=== PATIENT | female | born 1960 | race Caucasian/White ===

== ENCOUNTER → 2024-05-07 09:37 | Outpatient (REF) | payer BC, SELFPAY | LOC: MRI 3T 09:37 | PROVIDERS: ATTENDING PHYSICIAN Internal Medicine | DX: Z91.89 Other specified personal risk factors, not elsewhere classified (principal) | CPT/HCPCS: 77049; A9585 ==

== ENCOUNTER 2024-07-08 23:58 | Emergency (ER) | payer BC, SELFPAY ==
[2024-07-09 00:04] VITALS: BP 177/80
[2024-07-09 00:31] LABS: % Basophils 0.2 % (0-2); % Eosinophils 2.9 % (0-6); % Immature Granulocytes 1.3 % (0-0.5); % Lymphocytes 38.2 % (20.5-51.1); % Neutrophils 52.4 % (42.2-75.2); Absolute Eosinophils 0.1 10^3/uL (0-0.7); Absolute Immature Granulocytes 0.1 10^3/uL (0-0.05); Absolute Lymphocytes 1.8 10^3/uL (1.2-3.4); Absolute Monocytes 0.2 10^3/uL (0.1-0.6); Absolute Neutrophils 2.5 10^3/uL (1.4-6.5); Hematocrit 33.4 % (37.0-47.0); Hemoglobin 11.5 g/dL (12.0-16.0); Mean Corp Hgb Conc. 34.4 g/dL (33.0-37.0); Mean Corpuscular Hgb 30.4 pg (27.0-31.0); Mean Corpuscular Volume 88.4 fL (81.0-99.0); Mean Platelet Volume 11.3 fL (7.4-10.4); Nucleated Red Blood Cells % 0 %; Platelet Count 183 10^3/uL (130-400); Red Blood Cell Count 3.78 10^6/uL (4.20-5.40); Red Cell Dist. Width 14.1 % (11.5-14.5); White Blood Cell Count 4.8 10^3/uL (4.8-10.8)
[2024-07-09 00:43] LABS: ALT (SGPT) 18 U/L (0-35); AST (SGOT) 22 U/L (14-36); Albumin 4.4 g/dl (3.5-5.0); Alkaline Phosphatase 65 U/L (38-126); Blood Urea Nitrogen 31 mg/dl (7-17); Carbon Dioxide 34 mmol/L (22-30); Chloride 105 mmol/L (98-107); Glucose 95 mg/dl (70-99); Potassium 3.8 mmol/L (3.5-5.1); Sodium 141 mmol/L (135-145); Total Bilirubin 0.5 mg/dl (0.2-1.3); Total Protein 6.7 g/dl (6.3-8.2); eGFR > 60.00
[2024-07-09 00:46] LABS: Troponin I < 0.012 ng/ml
--- NOTE | 2024-07-09 00:51 | ED.GENMED ---
History of Present Illness
General
Chief Complaint: Chest Pain
Source: patient
Exam Limitations: none
Time Seen by Provider: 07/09/24 00:22
History of Present Illness
History of Present Illness:
64-year-old otherwise healthy female presents complaining of upper chest pain that started tonight around 11 PM. She was laying down to sleep. This has been preceded by about 2 weeks worth of pain in the left upper arm. She thought this was
muscular. She recently flew back from [place] which is a 4-hour one-way flight. She denies leg swelling or calf pain. Occasionally she does have more pain in the left side when she takes a deep breath. No neck or back pain. No paresthesias. No
nausea or diaphoresis. No other complaints at this time
Past History
Past History
ED Past Medical History: Negative CAD, HTN, IDDM or NIDDM
ED Past Surgical History: Negative Cardiac
Social History
Tobacco: Non-smoker
Alcohol: None
Drug: None
Personal:
Living: with family
Employment: Employed
Family History
Family History: Negative Early CAD
Phy Exam
Physical Exam
Physical Exam:
General: Well-appearing female no acute respiratory distress
HEENT: Normocephalic atraumatic
Heart: Regular rate and rhythm no murmurs
Lungs: Clear no wheeze
Extremities: No cyanosis or edema
Musculoskeletal exam: Spine is nontender good active and passive range of motion of the left shoulder. Slightly tender over the lateral aspect of the left shoulder
Scores
Heart Score for Chest Pain Patients
STEMI patient?: No
History: Slightly or Non-Suspicious
ECG: Normal
Age: >45 - <65 years
Risk Factors: No Risk Factors
Troponin: </= Normal Limit
Heart Score for Chest Pain Patients: 1
Heart Score Risk: 2.5% MACE over next 6 weeks
Course
Orders/Labs/Results
Orders:
Orders
07/08/24 23:59
Electrocardiogram (*1) Urgent
Reason for Study: Chest Pain
Complete Blood Count/With Diff Urgent
Comprehensive Metabolic Panel Urgent
Troponin I Urgent
07/09/24 00:00
EKG- Treatment ONCE
07/09/24 00:44
CR Chest - 2 Views Urgent
Comment:
Reason For Exam: chest pain
07/09/24 01:06
D-Dimer Urgent
Troponin I Urgent
Abnormal Lab Results
07/09/24
00:12
RBC 3.78 L 10^6/uL
(4.20-5.40)
Hgb 11.5 L g/dL
(12.0-16.0)
Hct 33.4 L %
(37.0-47.0)
MPV 11.3 H fL
(7.4-10.4)
Abs Immat Gran (auto) 0.1 H 10^3/uL
(0-0.05)
Immature Gran % 1.3 H %
(0-0.5)
Carbon Dioxide 34 H mmol/L
(22-30)
BUN 31 H mg/dl
(7-17)
07/09/24 00:12
07/09/24 00:12
Vital Signs
Initial and Last Documented VS:
Initial Vital Signs
Temp Pulse Resp BP Pulse Ox
97.8 F 55 20 177/80 98
07/09/24 00:04 07/09/24 00:04 07/09/24 00:04 07/09/24 00:04 07/09/24 00:04
Last Documented Vital Signs
Temp Pulse Resp BP Pulse Ox
97.8 F 55 20 177/80 98
07/09/24 00:04 07/09/24 00:04 07/09/24 00:04 07/09/24 00:04 07/09/24 00:04
MDM/Problems Addressed
Differential Diagnosis Includes:
Patient with left arm and chest pain. Consider musculoskeletal pain versus radiculopathy versus ACS. Given recent flight will check D-dimer to evaluate for DVT however I think the patient is low risk for this.
Initial troponin is undetectable. Repeat troponin pending
*Critical Care Note
Total Time (30-74mins, 75-104mins- exclusive of procedures): Not Applicable
Update Note
Update Note:
Troponin x 2 undetectable D-dimer undetectable chest x-ray without pneumothorax or acute cardiopulmonary abnormality. Suspect patient's arm and chest discomfort is most likely musculoskeletal. Recommend NSAIDs and Tylenol with family doctor
follow-up. No indication for admission stable for this
ED Attending Note
-
Portions of this chart may have been created with voice recognition software.� Occasional wrong word or��sound alike� substitutions may have occurred due to the inherent limitations of voice recognition software.
Discharge Plan
Departure
Patient Disposition: Home (Routine Discharge)
Date of Disposition: 07/09/24
Time of Disposition: 02:01
Patient with high blood pressure during this ER visit?: No
Discharge Problem:
Chest pain
Instructions: Chest Pain PCP Follow Up
Prescriptions:
No Action
No Current Medications
0
Referrals:
Laura Osei MD [Family Provider] -
Activity Restrictions/Additional Instructions:
Use ibuprofen or Tylenol for pain. Return if worse otherwise follow-up with your doctor
Interventions
Interventions:
*Risk Screen - Suicide Last Done: 07/09/24 00:02
*Neglect/Abuse Screening Last Done: 07/09/24 00:02
Discharge Date and Time
Print Language: LIBERIAN
[2024-07-09 01:26] LABS: D-Dimer < 0.27 ug/mlFEU (0.00-0.50)
[2024-07-09 01:43] LABS: Troponin I < 0.012 ng/ml
[2024-07-09 02:12] VITALS: BP 141/83
== END 2024-07-09 02:14 | disposition home or self-care (01) ==
LOC: EMR 23:58
PROVIDERS: Emergency Medicine; Physician Assistant; EMERGENCY PHYSICIAN Emergency Medicine; FAMILY PHYSICIAN Internal Medicine
DX: R07.89 Other chest pain (principal)
CPT/HCPCS: 99285; 71046; 80053; 84484; 85025; 85379; 93005